=== PATIENT | male | born 1950 | race Caucasian/White ===

== ENCOUNTER 2017-01-02 07:44 | Inpatient (IN) | payer MEDICARE ==
[~2017-01-02] VITALS: Ht 180.3 cm; Wt 90.1 kg
[2017-01-02] MEDS ORDERED: OMEP-110 PO (08:04)
[2017-01-02] MEDS ORDERED: METOPROLOL PO (08:04)
[2017-01-02] MEDS ORDERED: LOSA1TAB22 PO (08:04)
[2017-01-02] MEDS ORDERED: TIOT18CA INH (08:04)
[2017-01-02] MEDS ORDERED: ATOR-2 PO (08:04)
[2017-01-02] MEDS ORDERED: ONDANSETRON 2MG/ML, 2ML ONE (08:58)
[2017-01-02] MEDS ORDERED: HYDROmorphone 1 MG/ML, 1ML ONE (08:58)
[2017-01-02] MEDS ORDERED: HYDROmorphone 1 MG/ML, 1ML IV ONE (09:00)
[2017-01-02] MEDS ORDERED: ONDANSETRON 2MG/ML, 2ML IVPush ONE (09:00)
[2017-01-02] MEDS ORDERED: ALBUTEROL/IPRATROPIUM 2.5MG/0.5MG, 3 ML ONE (10:26)
[2017-01-02] MEDS ORDERED: ALBUTEROL/IPRATROPIUM 2.5MG/0.5MG, 3 ML NPPB ONE (10:30)
[2017-01-02 10:32] LABS: HEMATOCRIT 43.4 % (39.2-51.8); HEMOGLOBIN 14.9 g/dL (13.7-18.0); WHITE BLOOD COUNT 13.1 x10^3/uL (3.4-10)
[2017-01-02 10:41] LABS: BLOOD UREA NITROGEN 11 mg/dL (7-18)
[2017-01-02] MEDS ORDERED: SODIUM CHLORIDE 0.9% 1,000 ML IV ONE (11:20)
[2017-01-02] MEDS ORDERED: SODIUM CHLORIDE FLUSH 10ML SYR IVF PRN (11:30)
[2017-01-02] MEDS ORDERED: ONDANSETRON 2MG/ML, 2ML IVPush PRN (11:30)
[2017-01-02] MEDS ORDERED: ALBUTEROL/IPRATROPIUM 2.5MG/0.5MG, 3 ML NPPB PRN (11:30)
[2017-01-02] MEDS ORDERED: SODIUM CHLORIDE 0.9% 1,000 ML IV SCH (12:00)
[2017-01-02 13:11] VITALS: BP 166/67
[2017-01-02] MEDS: HYDROmorphone 2 MG/ML, 1ML IVPush PRN ×3 (13:17→21:02)
[2017-01-02] MEDS: ENOXAPARIN 40 MG/0.4 ML SQ SCH (13:59)
[2017-01-02] MEDS: IBUPROFEN 200 MG TABLET PO SCH ×2 (14:00→21:49)
[2017-01-02] MEDS: SODIUM CHLORIDE 0.9% 1,000 ML IV SCH ×2 (14:00→21:53)
[2017-01-02 19:06] VITALS: BP 133/73
[2017-01-02] MEDS: ATORVASTATIN 20 MG TABLET PO SCH (21:48)
[2017-01-03 00:52] VITALS: BP 122/70
[2017-01-03] MEDS: HYDROmorphone 2 MG/ML, 1ML IVPush PRN ×7 (03:10→22:10)
[2017-01-03 05:50] LABS: HEMATOCRIT 37.8 % (39.2-51.8); HEMOGLOBIN 13.1 g/dL (13.7-18.0); WHITE BLOOD COUNT 10.5 x10^3/uL (3.4-10)
[2017-01-03 05:58] LABS: BLOOD UREA NITROGEN 15 mg/dL (7-18)
[2017-01-03] MEDS: SODIUM CHLORIDE 0.9% 1,000 ML IV SCH ×3 (06:32→22:24)
[2017-01-03 06:34] VITALS: BP 134/68
[2017-01-03] MEDS: LOSARTAN 50MG TABLET PO SCH (09:24)
[2017-01-03] MEDS: OMEPRAZOLE 20 MG CAPSULE.DR PO SCH (09:24)
[2017-01-03] MEDS: METOPROLOL TARTRATE 25 MG TABLET PO SCH (09:26)
[2017-01-03] MEDS: HYDROCHLOROTHIAZIDE 25 MG TABLET PO SCH (09:26)
[2017-01-03] MEDS: IBUPROFEN 200 MG TABLET PO SCH (09:27)
[2017-01-03] MEDS ORDERED: KETOROLAC 30 MG/1 ML IM ONE (10:30)
[2017-01-03] MEDS ORDERED: DIAZEPAM 5 MG/ML, 2ML IV PRN (10:30)
[2017-01-03] MEDS: ENOXAPARIN 40 MG/0.4 ML SQ SCH (11:57)
[2017-01-03 12:15] VITALS: BP 114/65
[2017-01-03] MEDS: KETOROLAC 30 MG/1 ML IVPush SCH ×2 (17:06→22:30)
[2017-01-03 20:40] VITALS: BP 135/70
[2017-01-03] MEDS: ATORVASTATIN 20 MG TABLET PO SCH (22:10)
[2017-01-03] MEDS: DIAZEPAM 5 MG/ML, 10ML VIAL IV PRN (22:32)
[2017-01-04] MEDS: KETOROLAC 30 MG/1 ML IVPush SCH ×4 (01:22→20:54)
[2017-01-04] MEDS: HYDROmorphone 2 MG/ML, 1ML IVPush PRN ×3 (02:10→22:40)
[2017-01-04 03:26] VITALS: BP 143/73
[2017-01-04] MEDS: SODIUM CHLORIDE 0.9% 1,000 ML IV SCH ×2 (06:03→14:27)
[2017-01-04 06:35] VITALS: BP 139/72
[2017-01-04] MEDS: OMEPRAZOLE 20 MG CAPSULE.DR PO SCH (09:02)
[2017-01-04] MEDS: METOPROLOL TARTRATE 25 MG TABLET PO SCH (09:02)
[2017-01-04] MEDS: HYDROCHLOROTHIAZIDE 25 MG TABLET PO SCH (09:02)
[2017-01-04] MEDS: LOSARTAN 50MG TABLET PO SCH (09:03)
[2017-01-04 10:09] LABS: BLOOD UREA NITROGEN 11 mg/dL (7-18)
[2017-01-04 11:19] LABS: HEMATOCRIT 38.6 % (39.2-51.8); HEMOGLOBIN 13.1 g/dL (13.7-18.0); WHITE BLOOD COUNT 8.7 x10^3/uL (3.4-10)
[2017-01-04 12:17] VITALS: BP 135/67
[2017-01-04] MEDS: ENOXAPARIN 40 MG/0.4 ML SQ SCH (12:47)
[2017-01-04] MEDS: DOCUSATE 100 MG CAPSULE PO PRN (14:06)
[2017-01-04] MEDS: DIAZEPAM 5 MG/ML, 10ML VIAL IV PRN (14:06)
[2017-01-04] MEDS: POLYETHYLENE GLYCOL 17 GM PACKET PO SCH (17:39)
[2017-01-04 20:00] VITALS: BP 148/72
[2017-01-04] MEDS: ATORVASTATIN 20 MG TABLET PO SCH (20:53)
[2017-01-05] VITALS (7 sets, daily range): BP systolic 148–200; BP diastolic 66–100
[2017-01-05] MEDS: SODIUM CHLORIDE 0.9% 1,000 ML IV SCH ×2 (00:49→08:03)
[2017-01-05] MEDS: KETOROLAC 30 MG/1 ML IVPush SCH ×4 (03:44→20:56)
[2017-01-05] MEDS: DIAZEPAM 5 MG/ML, 10ML VIAL IV PRN ×2 (05:05→16:42)
[2017-01-05 05:36] LABS: BLOOD UREA NITROGEN 11 mg/dL (7-18)
[2017-01-05] MEDS: LABETALOL 5MG/ML, 20ML IVPush PRN (05:58)
[2017-01-05] MEDS ORDERED: POTASSIUM CHLORIDE 20 MEQ TAB.ER.PRT PO ONE (06:30)
[2017-01-05] MEDS: LOSARTAN 50MG TABLET PO SCH (07:48)
[2017-01-05] MEDS: HYDROCHLOROTHIAZIDE 25 MG TABLET PO SCH (07:48)
[2017-01-05] MEDS: POLYETHYLENE GLYCOL 17 GM PACKET PO SCH (07:48)
[2017-01-05] MEDS: METOPROLOL TARTRATE 25 MG TABLET PO SCH (07:49)
[2017-01-05] MEDS: OMEPRAZOLE 20 MG CAPSULE.DR PO SCH (07:49)
[2017-01-05] MEDS ORDERED: SENNOSIDES 8.8 MG/5 ML ORAL SOL PO PRN (09:00)
[2017-01-05] MEDS: ENOXAPARIN 40 MG/0.4 ML SQ SCH (11:34)
[2017-01-05] MEDS: NS + 20MEQ KCL 1,000 ML IV SCH (13:38)
[2017-01-05] MEDS ORDERED: AZITHROMYCIN 500 MG TABLET PO ONE (17:30)
[2017-01-05] MEDS ORDERED: CEFTRIAXONE 1,000 MG in DEXTROSE 5% 50 ML IV SCH (18:00)
[2017-01-05] MEDS: ALBUTEROL/IPRATROPIUM 2.5MG/0.5MG, 3 ML NPPB SCH (19:59)
[2017-01-05 20:08] LABS: BLOOD UREA NITROGEN 10 mg/dL (7-18)
[2017-01-05] MEDS: CEFTRIAXONE 1,000 MG in DEXTROSE 5% 50 ML IV SCH ×2 (20:43→20:56)
[2017-01-05] MEDS: ATORVASTATIN 20 MG TABLET PO SCH (20:43)
[2017-01-06] VITALS (7 sets, daily range): BP systolic 166–198; BP diastolic 77–95
[2017-01-06] MEDS: NS + 20MEQ KCL 1,000 ML IV SCH ×3 (01:22→17:38)
[2017-01-06] MEDS: LABETALOL 5MG/ML, 20ML IVPush PRN (02:21)
[2017-01-06] MEDS: KETOROLAC 30 MG/1 ML IVPush SCH ×4 (03:17→21:00)
[2017-01-06 05:48] LABS: HEMATOCRIT 34.7 % (39.2-51.8); WHITE BLOOD COUNT 5.5 x10^3/uL (3.4-10)
[2017-01-06 05:59] LABS: BLOOD UREA NITROGEN 8 mg/dL (7-18)
[2017-01-06] MEDS: ALBUTEROL/IPRATROPIUM 2.5MG/0.5MG, 3 ML NPPB SCH (06:00)
[2017-01-06] MEDS: METOPROLOL TARTRATE 25 MG TABLET PO SCH (09:39)
[2017-01-06] MEDS: LOSARTAN 50MG TABLET PO SCH (09:39)
[2017-01-06] MEDS: OMEPRAZOLE 20 MG CAPSULE.DR PO SCH (09:39)
[2017-01-06] MEDS: HYDROCHLOROTHIAZIDE 25 MG TABLET PO SCH (09:39)
[2017-01-06] MEDS: POLYETHYLENE GLYCOL 17 GM PACKET PO SCH (09:40)
[2017-01-06] MEDS ORDERED: ALBUTEROL/IPRATROPIUM 2.5MG/0.5MG, 3 ML ONE (09:50)
[2017-01-06] MEDS: ALBUTEROL/IPRATROPIUM 2.5MG/0.5MG, 3 ML IPPB SCH ×4 (09:54→21:00)
[2017-01-06] MEDS: HYDROmorphone 2 MG/ML, 1ML IVPush PRN (12:46)
[2017-01-06] MEDS: ENOXAPARIN 40 MG/0.4 ML SQ SCH (12:48)
[2017-01-06] MEDS: AZITHROMYCIN 250 MG TABLET PO SCH (17:30)
[2017-01-06] MEDS ORDERED: CEFTRIAXONE 1,000 MG in DEXTROSE 5% 50 ML IV SCH (21:00)
[2017-01-06] MEDS: ATORVASTATIN 20 MG TABLET PO SCH (21:00)
[2017-01-06] MEDS: CEFTRIAXONE PMX 1GM/50ML 50 ML IV SCH (21:30)
[2017-01-07] VITALS (13 sets, daily range): BP systolic 113–222; BP diastolic 72–119
[2017-01-07] MEDS: KETOROLAC 30 MG/1 ML IVPush SCH ×4 (03:00→20:15)
[2017-01-07] MEDS: NS + 20MEQ KCL 1,000 ML IV SCH ×2 (04:00→14:32)
[2017-01-07] MEDS: LABETALOL 5MG/ML, 20ML IVPush PRN ×3 (06:39→23:23)
[2017-01-07] MEDS: ALBUTEROL/IPRATROPIUM 2.5MG/0.5MG, 3 ML IPPB SCH ×4 (07:30→19:09)
[2017-01-07] MEDS: METOPROLOL TARTRATE 25 MG TABLET PO SCH (08:47)
[2017-01-07] MEDS: HYDROCHLOROTHIAZIDE 25 MG TABLET PO SCH (08:47)
[2017-01-07] MEDS: OMEPRAZOLE 20 MG CAPSULE.DR PO SCH (08:47)
[2017-01-07] MEDS: LOSARTAN 50MG TABLET PO SCH (08:47)
[2017-01-07] MEDS: AZITHROMYCIN 250 MG TABLET PO SCH (08:48)
[2017-01-07] MEDS: POLYETHYLENE GLYCOL 17 GM PACKET PO SCH (08:49)
[2017-01-07] MEDS: HYDROmorphone 2 MG/ML, 1ML IVPush PRN (12:24)
[2017-01-07] MEDS: ENOXAPARIN 40 MG/0.4 ML SQ SCH (12:24)
[2017-01-07] MEDS ORDERED: ENALAPRILAT 1.25 MG/ML, 2ML IVPush PRN (15:30)
[2017-01-07] MEDS: hydrALAzine 20 MG/ML, 1ML IVPush PRN ×2 (16:05→22:15)
[2017-01-07] MEDS: CEFTRIAXONE PMX 1GM/50ML 50 ML IV SCH (20:15)
[2017-01-07] MEDS: ATORVASTATIN 20 MG TABLET PO SCH (20:15)
[2017-01-07] MEDS ORDERED: NS + 20MEQ KCL 1,000 ML IV SCH (21:00)
[2017-01-08] VITALS (7 sets, daily range): BP systolic 149–209; BP diastolic 68–100
[2017-01-08] MEDS: LABETALOL 5MG/ML, 20ML IVPush PRN ×2 (02:29→21:16)
[2017-01-08] MEDS: HYDROmorphone 2 MG/ML, 1ML IVPush PRN (02:52)
[2017-01-08] MEDS: KETOROLAC 30 MG/1 ML IVPush SCH ×3 (03:45→15:16)
[2017-01-08 07:26] LABS: BLOOD UREA NITROGEN 7 mg/dL (7-18)
[2017-01-08 07:30] LABS: HEMATOCRIT 37.3 % (39.2-51.8); HEMOGLOBIN 12.9 g/dL (13.7-18.0); WHITE BLOOD COUNT 7.5 x10^3/uL (3.4-10)
[2017-01-08] MEDS: LOSARTAN 50MG TABLET PO SCH (07:57)
[2017-01-08] MEDS: OMEPRAZOLE 20 MG CAPSULE.DR PO SCH (07:57)
[2017-01-08] MEDS: AZITHROMYCIN 250 MG TABLET PO SCH (07:57)
[2017-01-08] MEDS: HYDROCHLOROTHIAZIDE 25 MG TABLET PO SCH (07:57)
[2017-01-08] MEDS: METOPROLOL TARTRATE 25 MG TABLET PO SCH (07:58)
[2017-01-08] MEDS: POLYETHYLENE GLYCOL 17 GM PACKET PO SCH (07:58)
[2017-01-08] MEDS: DOCUSATE 100 MG CAPSULE PO PRN (07:58)
[2017-01-08] MEDS: ALBUTEROL/IPRATROPIUM 2.5MG/0.5MG, 3 ML IPPB SCH ×4 (09:41→20:13)
[2017-01-08] MEDS: FUROSEMIDE 20 MG/2 ML IV SCH (10:15)
[2017-01-08] MEDS: ENOXAPARIN 40 MG/0.4 ML SQ SCH (12:03)
[2017-01-08] MEDS: ATORVASTATIN 20 MG TABLET PO SCH (20:32)
[2017-01-08] MEDS: CEFTRIAXONE PMX 1GM/50ML 50 ML IV SCH (20:32)
[2017-01-09 01:40] VITALS: BP 171/82
[2017-01-09] MEDS: hydrALAzine 20 MG/ML, 1ML IVPush PRN (01:57)
[2017-01-09 06:55] LABS: HEMATOCRIT 36.6 % (39.2-51.8); HEMOGLOBIN 12.6 g/dL (13.7-18.0)
[2017-01-09 07:05] LABS: BLOOD UREA NITROGEN 10 mg/dL (7-18)
[2017-01-09] MEDS: ALBUTEROL/IPRATROPIUM 2.5MG/0.5MG, 3 ML IPPB SCH ×4 (07:30→20:15)
[2017-01-09 08:00] VITALS: BP 129/70
[2017-01-09] MEDS: OMEPRAZOLE 20 MG CAPSULE.DR PO SCH (08:07)
[2017-01-09] MEDS: HYDROCHLOROTHIAZIDE 25 MG TABLET PO SCH (08:08)
[2017-01-09] MEDS: FUROSEMIDE 20 MG/2 ML IV SCH (08:08)
[2017-01-09] MEDS: AZITHROMYCIN 250 MG TABLET PO SCH (08:08)
[2017-01-09] MEDS: METOPROLOL TARTRATE 25 MG TABLET PO SCH (08:08)
[2017-01-09] MEDS: LOSARTAN 50MG TABLET PO SCH (08:08)
[2017-01-09] MEDS: POLYETHYLENE GLYCOL 17 GM PACKET PO SCH (08:08)
[2017-01-09] MEDS: ENOXAPARIN 40 MG/0.4 ML SQ SCH (11:33)
[2017-01-09 16:12] VITALS: BP 187/79
[2017-01-09 17:15] VITALS: BP 166/85
[2017-01-09 18:54] VITALS: BP 155/74
[2017-01-09] MEDS: ATORVASTATIN 20 MG TABLET PO SCH (19:54)
[2017-01-09] MEDS: CEFTRIAXONE PMX 1GM/50ML 50 ML IV SCH (21:43)
[2017-01-10 02:40] VITALS: BP 140/70
[2017-01-10 06:32] VITALS: BP 171/79
[2017-01-10] MEDS: ALBUTEROL/IPRATROPIUM 2.5MG/0.5MG, 3 ML IPPB SCH ×4 (07:35→21:00)
[2017-01-10] MEDS: HYDROCHLOROTHIAZIDE 25 MG TABLET PO SCH (08:11)
[2017-01-10] MEDS: FUROSEMIDE 20 MG/2 ML IV SCH (08:12)
[2017-01-10] MEDS: LOSARTAN 50MG TABLET PO SCH (08:12)
[2017-01-10] MEDS: POLYETHYLENE GLYCOL 17 GM PACKET PO SCH (08:12)
[2017-01-10] MEDS: METOPROLOL TARTRATE 25 MG TABLET PO SCH (08:12)
[2017-01-10] MEDS: AZITHROMYCIN 250 MG TABLET PO SCH (08:12)
[2017-01-10] MEDS: OMEPRAZOLE 20 MG CAPSULE.DR PO SCH (08:12)
[2017-01-10 09:05] VITALS: BP 132/81
[2017-01-10] MEDS: ENOXAPARIN 40 MG/0.4 ML SQ SCH (11:37)
[2017-01-10 12:02] VITALS: BP 149/69
[2017-01-10] MEDS ORDERED: DOCU-131 PO (14:32)
[2017-01-10] MEDS ORDERED: HYDR-3241 PO (14:32)
[2017-01-10] MEDS ORDERED: CEFD300C37 PO (14:32)
== END 2017-01-10 07:20 | disposition home or self-care (01) | DRG 871 ==
LOC: ED 08:25 → EDIP 11:20 → 4WST 12:47
PROVIDERS: ADMIT Family Medicine; ATTEND Family Medicine
DX: A41.9 Sepsis, unspecified organism (principal); J18.9 Pneumonia, unspecified organism; S22.41XA Multiple fractures of ribs, right side, initial encounter for closed fracture; Z89.611 Acquired absence of right leg above knee; E87.1 Hypo-osmolality and hyponatremia; J43.2 Centrilobular emphysema; J98.11 Atelectasis; E87.70 Fluid overload, unspecified; I10 Essential (primary) hypertension; E78.5 Hyperlipidemia, unspecified; K59.09 Other constipation; S20.319A Abrasion of unspecified front wall of thorax, initial encounter; W11.XXXA Fall on and from ladder, initial encounter; Z87.891 Personal history of nicotine dependence; Y93.89 Activity, other specified; Y92.89 Other specified places as the place of occurrence of the external cause; Z87.828 Personal history of other (healed) physical injury and trauma; Z88.0 Allergy status to penicillin; Z79.899 Other long term (current) drug therapy
CPT/HCPCS: 36415; 71010; 71250; 80048; 81003; 82040; 83735; 85025; 85610; 85730; 94640; 94664; 96374; 96375; J0696; J1170; J1650; J1885; J2405; J3360; J3480; J7620; J0360; J1940; J7030